=== PATIENT | male | born 1990 | race Caucasian/White ===

== ENCOUNTER 2019-08-31 08:12 | Day surgery (SDC) | payer OTHER ==
[~2019-08-31] VITALS: Ht 180.3 cm; Wt 102.5 kg
[~2019-08-31 08:12] MED LIST: LIDOCAINE 1% MDV 20ML VIAL SQ PRN; LR 1,000 ML IV ONE; PROP15DR3 OP; ceFAZolin SOD 2 GM in IV 1 EA IV ONE
[2019-08-31] MEDS ORDERED: MIDAZOLAM INJ 2MG/2ML VIAL (J2250 PER 1MG) As Ordered ONE ×2 (09:02→10:08)
[2019-08-31] MEDS ORDERED: fentaNYL 250 MCG/5 ML INJECTION (J3010) As Ordered ONE (09:02)
[2019-08-31] MEDS ORDERED: ONDANSETRON 4MG/2ML VIAL As Ordered ONE ×2 (09:03→14:56)
[2019-08-31] MEDS ORDERED: SUGAMMADEX SODIUM 500 MG/5 ML VIAL (BRIDION) As Ordered ONE (09:03)
[2019-08-31] MEDS ORDERED: PHENYLephrine HCL 500 MCG/5 ML (100MCG/ML) SYRINGE (J2370) As Ordered ONE (09:03)
[2019-08-31] MEDS ORDERED: ePHEDrine SULFATE 25 MG/5 ML(5MG/ML) SYRINGE As Ordered ONE (09:03)
[2019-08-31] MEDS ORDERED: ROCURONIUM BROMIDE 50 MG/5 ML VIAL As Ordered ONE ×2 (09:03→12:56)
[2019-08-31] MEDS ORDERED: propofoL 200 MG/20 ML VIAL As Ordered ONE (09:03)
[2019-08-31] MEDS ORDERED: LIDOCAINE 2% 100MG/5ML SDV (FOR ANES.) As Ordered ONE (09:03)
[2019-08-31] MEDS ORDERED: dexameTHASONE 4 MG/ML 1ML VIAL (J1100 PER 1MG) As Ordered ONE (09:03)
[2019-08-31] MEDS ORDERED: MIDAZOLAM INJ 2MG/2ML VIAL (J2250 PER 1MG) IV PRN (09:45)
[2019-08-31] MEDS ORDERED: fentaNYL 100 MCG/2 ML INJECTION (J3010) As Ordered ONE (10:08)
[2019-08-31] MEDS ORDERED: fentaNYL 100 MCG/2 ML INJECTION (J3010) IV ONE (10:45)
[2019-08-31] MEDS ORDERED: MIDAZOLAM INJ 2MG/2ML VIAL (J2250 PER 1MG) IV ONE (10:45)
[2019-08-31] MEDS ORDERED: EPINEPHrine 1MG/ML INJ 30ML MD-VIAL As Ordered ONE (11:09)
[2019-08-31] MEDS ORDERED: ACETAMINOPHEN 1000MG 100ML IV BTL (OFIRMEV) (J0131 PER 10MG) As Ordered ONE (11:51)
[2019-08-31] MEDS ORDERED: ONDANSETRON 4MG/2ML VIAL IV PRN (15:15)
[2019-08-31] MEDS ORDERED: HYDROMORPHONE HCL 0.5 MG/ 0.5 ML SYRINGE (J1170 PER 1) IV PRN (15:15)
[2019-08-31] MEDS ORDERED: fentaNYL 100 MCG/2 ML INJECTION (J3010) IV PRN (15:15)
[2019-08-31] MEDS ORDERED: oxyCODONE 5MG TAB PO PRN (15:15)
[2019-08-31] MEDS ORDERED: LR 1,000 ML IV SCH (15:15)
[2019-08-31] MEDS ORDERED: METOCLOPRAMIDE INJ 10MG/2ML VIAL (J2765 PER 1) As Ordered ONE (16:48)
[2019-08-31] MEDS ORDERED: METOCLOPRAMIDE INJ 10MG/2ML VIAL (J2765 PER 1) IV ONE (17:00)
[2019-08-31 18:00] VITALS: BP 127/68
--- NOTE | 2019-09-05 16:18 | RO ---
DATE OF PROCEDURE: 08/31/2019 PREOPERATIVE DIAGNOSES: 1. Right shoulder posterior labral tear. 2. Right shoulder superior labral tear. 3. Right shoulder partial rotator cuff tear. POSTOPERATIVE DIAGNOSES: 1. Right shoulder posterior inferior labral tear. 2. Right shoulder type 1 SLAP tear. 3. Right shoulder partial articular rotator cuff tear. 4. Right shoulder chondromalacia. PROCEDURE: 1. Right shoulder arthroscopic posterior labral repair. 2. Right shoulder arthroscopic rotator cuff debridement. 3. Right shoulder superior labral debridement. 4. Right shoulder chondroplasty of the humeral head and glenoid. SURGEON: Dr. Zain Solorzano [employer] DR[employer]: HOWARD Paula ANESTHESIA: General: Preoperative nerve block. IV FLUIDS: Lactated Ringer's. ESTIMATE BLOOD LOSS: 10 mL. IMPLANTS: Arthrex 2.9 mm short Bio[employer]posite PushLock anchor times three with labral tape. CLOSURE: Nylon. DESCRIPTION OF PROCEDURE: The patient was identified in preoperative holding area. The right shoulder marked by myself. He had an interscalene nerve block by anesthesia. He was brought to the operating room, placed supine on a well-padded operating room (OR) table. General anesthesia induced. Exam under anesthesia revealed 180 degrees of forward flexion, 90 of external rotation, grade 1 anterior load and shift, grade 2 plus posterior load and shift. He was then placed in the left side down lateral decubitus position with an axillary roll and all bony prominences well padded. Bilateral Venodyne boots for deep venous thrombosis (DVT) prophylaxis. The right shoulder was placed into Arthrex star sleeve lateral decubitus traction langford with 10 pounds of traction. Right shoulder was then prepped and draped in normal sterile fashion with Chloraprep. Prior to incision. He received appropriate IV antibiotics. Kenroy Chance was present the entire procedure and participated all essential portions of the procedure. This included patient positioning and draping, holding arthroscope, providing traction and manipulation of the shoulder to improve angle for drilling and suture lasso passage. He also assisted with loading sutures. Performed the wound closure, applied the dressing and sling. After a time-out had been performed, the right shoulder was insufflated with lactated Ringer's and a standard posterior viewing portal was made with an 11-blade. 30 degrees arthroscope introduced into the joint. Diagnostic arthroscopy carried out revealing a moderate grade partial articular tear of the supraspinatus extending into the infraspinatus likely related to internal impingement. Subscapularis was pristine. Long head of the biceps was unremarkable. Superior labrum had some tearing posteriorly. The anchor on first inspection appeared intact. Anterior labrum was intact. There is tearing of the posterior labrum from 6:30 to the 10:30 position. An anterior working portal was established through the rotator interval just off the subscapularis. On probing of the superior labrum, it was deemed to be stable. No unstable flap tear. No indication for flap repair or tenodesis. The biceps was brought into the joint and there is no pathology. Shaver was used to perform a debridement of the posterior superior labrum. The leading edge frayed the labrum along the posterior glenoid was also debrided. There was chondromalacia grade 1 borderline grade 2 and the posterior humeral head and some thin flaps from early arthritis, likely related to as instability. The posterior glenoid had grade 1 chondromalacia with diffuse thin flaps articular cartilage as well. No high-grade chondromalacia. There is a negative drive-through sign. The shaver was used to then perform a debridement of the partial articular rotator cuff tear. I would estimate this to be about 33% partial articular tear. No indication for repair. Chondroplasty was performed in the humeral head and glenoid with the shaver. The arthroscope was then placed into the accessory anterior superior portal which was placed through the rotator interval just anterior to the biceps. The percutaneous labral repair kit was opened and then I created an accessory posterolateral portal to get a better angle for drilling at the posterior inferior glenoid. A third purple Arthrex cannula was placed. The hooked radiofrequency cautery was used to further develop the plane between the articular cartilage and labrum. Labral elevators were then used to subperiosteally elevate capsule and labrum off the glenoid neck. Shaver was used to remove any devitalize or poor quality tissue and then a ring curette and rasp were used to create a bleeding surface. A 25 degrees tight left suture lasso was then used to shuttle labral tape through the posterior inferior labrum and capsule and loaded through PushLock anchor. I first drilled at the 6-o'clock position. However, when I went to mount the anchor in place, there was likely some cortical blowout. So I then re-drilled at the 6:30 position, anchor was docked and then I malleted it in placed with excellent fixation and this nicely secured the posterior inferior labrum. I then shuttled labral tape with the lasso and again loaded through a PushLock anchor drilled at the 7:30 position. That anchor was tensioned malleted per routine with excellent fixation. This nicely restored the post inferior bumper. The same steps were repeated for a third and final PushLock anchor at the 9-o'clock position. I then probed the remaining posterior and superior labrum. It was nicely secured to bone. There was no indication for a fourth anchor. The arthroscope was placed back to the anterior superior portal. The humeral head was centrally located on the glenoid. Shoulder was irrigated and drained. Portals were closed with nylon suture. Bulky sterile dressing applied. He was carefully placed into an R-2 sling in the gunslinger position. At the time of dictation, he was then extubated, transferred to postanesthesia unit PACU) in stable condition. DISPOSITION: The patient will need to start physical therapy within 10 days. I spoke to his parents who are in [place] he will be getting out of the moving back to [place] in 3 months. They understand he has to do physical therapy in [place] as well. Will provide a copy of this operative report and arthroscopy pictures.
== END 2019-08-31 18:55 | disposition home or self-care (01) ==
LOC: M SDC 08:12
PROVIDERS: ATTEND Orthopaedic Surgery
DX: S43.431A Superior glenoid labrum lesion of right shoulder, initial encounter (principal); X58.XXXA Exposure to other specified factors, initial encounter; M75.111 Incomplete rotator cuff tear or rupture of right shoulder, not specified as traumatic; M94.211 Chondromalacia, right shoulder; Y92.89 Other specified places as the place of occurrence of the external cause; Y93.9 Activity, unspecified; Y99.9 Unspecified external cause status; K58.8 Other irritable bowel syndrome; F32.9 Major depressive disorder, single episode, unspecified; F41.9 Anxiety disorder, unspecified; Z79.899 Other long term (current) drug therapy; Z88.5 Allergy status to narcotic agent
CPT/HCPCS: 29807; 29823; 64415; C1713; J0131; J0690; J1100; J2250; J2370; J2405; J2765; J3010